=== PATIENT | female | born 1965 | race Caucasian/White ===

== ENCOUNTER 2017-05-02 10:24 | Emergency (ER) | payer MEDICAID ==
[~2017-05-02] VITALS: Ht 162.6 cm; Wt 80.0 kg
[2017-05-02 10:36] VITALS: Ht 162.6 cm; Wt 80.0 kg
[2017-05-02] MEDS ORDERED: KETOROLAC 60 MG INJ IM STA (12:00)
[2017-05-02] MEDS ORDERED: NAPR-688 PO (12:17)
[2017-05-02] MEDS ORDERED: HYDR-906 PO (12:17)
[2017-05-02] MEDS ORDERED: METH500T PO (12:17)
--- NOTE | 2017-05-02 12:23 | ERD ---
ER Documentation Chief Complaint Date/Time DATE: 05/02/17 TIME: 12:19 Chief Complaint SINCE THURSDAY HAS BACK PAIN TAKING MEDS AND NOT EFFECTIVE HAS OCONNELL NOW HPI This 51-year-old female presents the emergency room for neck and back pain she awoke with on . No trauma. She has been taking Tylenol which only helps a little bit but the pain continues. She is beginning to have a headache. He has no neurological symptoms and the main pain is in her upper back bilaterally. No fevers or chills. No nausea. ROS All systems reviewed and are negative except as per history of present illness. Medications Home Meds Active Scripts Methocarbamol* (Robaxin*) 500 Mg Tab, 500 MG PO Q8, #20 TAB Prov:KIM FLYNN DO 05/02/17 Naproxen* (Naproxen*) 500 Mg Tablet, 500 MG PO BID Y for PAIN, #20 TAB Prov:KIM FLYNN DO 05/02/17 Hydrocodone/Acetaminophen (Roulette 5-325 Tablet) 1 Each Tablet, 1 EACH PO Q6, #14 TAB Prov:KIM FLYNN DO 05/02/17 Allergies Allergies: Coded Allergies: No Known Allergy (Unverified , 05/02/17) PMhx/Soc Medical and Surgical Hx: pt denies Medical Hx, pt denies Surgical Hx History of Surgery: No Anesthesia Reaction: No Hx Neurological Disorder: No Hx Respiratory Disorders: No Hx Cardiac Disorders: No Hx Psychiatric Problems: No Hx Miscellaneous Medical Probl: No Hx Alcohol Use: No Hx Substance Use: No Hx Tobacco Use: Yes Smoking Status: Current every day smoker Physical Exam Vitals Vital Signs Date Time Temp Pulse Resp B/P Pulse Ox O2 Delivery O2 Flow Rate FiO2 05/02/17 10:36 98.6 89 18 131/83 97 Physical Exam Const: [] No distress Head: Atraumatic Eyes: Normal Conjunctiva ENT: Normal External Ears, Nose and Mouth. Neck: Full range of motion..~ No meningismus. Mild left paraspinal muscle spasm Back: Bilateral paraspinal muscle spasm, worse on the left than the right. No midline tenderness. No deformities. Neur: Awake and alert and oriented 3, no focal deficits, cranial nerves II through XII intact Psych: Normal Mood and Affect Results 24 hrs Current Medications Medications (Trade) Dose Ordered Sig/Halley Route PRN Reason Start Time Stop Time Status Last Admin Dose Admin Ketorolac Tromethamine (Toradol) 60 mg ONCE STAT IM 05/02/17 12:00 05/02/17 12:01 DC 05/02/17 12:10 Procedures/MDM Back muscle spasm responding only minimally to Tylenol. She was given a shot of Toradol in the emergency room to discharge with naproxen, Robaxin, Roulette to break the cycle of the spasm. I have extremely low suspicion for meningitis. Departure Diagnosis: Primary Impression: Muscle spasm of back Condition: Stable Patient Instructions: Back Spasm, No Trauma Referrals: [facility] YOU HAVE RECEIVED A MEDICAL SCREENING EXAM AND THE RESULTS INDICATE THAT YOU DO NOT HAVE A CONDITION THAT REQUIRES URGENT TREATMENT IN THE EMERGENCY DEPARTMENT. FURTHER EVALUATION AND TREATMENT OF YOUR CONDITION CAN WAIT UNTIL YOU ARE SEEN IN YOUR DOCTORS OFFICE WITHIN THE NEXT 1-2 DAYS. IT IS YOUR RESPONSIBILITY TO MAKE AN APPOINTMENT FOR FOLOW-UP CARE. IF YOU HAVE A PRIMARY DOCTOR --you should call your primary doctor and schedule an appointment IF YOU DO NOT HAVE A PRIMARY DOCTOR YOU CAN CALL OUR PHYSICIAN REFERRAL HOTLINE AT IF YOU CAN NOT AFFORD TO SEE A PHYSICIAN YOU CAN CHOSE FROM THE FOLLOWING [facility] [address] [facility]. [facility] [address] [facility] [facility] [address] [facility] [facility] [address] [facility] [facility] [phone] [facility]. [facility]. [address] Additional Instructions: Llame al doctor MAANA y danitza macario JAMIL PARA DENTRO DE 2-3 GILBERT.Dgale a la secretaria que nosotros le instruimos hacer esta jamil.Avise o llame si encinas condicin se empeora antes de la jamil. Regresa aqui si peor o no mejor. KIM FLYNN DO May 02, 2017 12:23
== END 2017-05-02 12:38 | disposition home or self-care (01) ==
LOC: FTE 10:24
DX: M62.830 Muscle spasm of back (principal); F17.210 Nicotine dependence, cigarettes, uncomplicated
CPT/HCPCS: 96372; J1885; Z7502

== ENCOUNTER 2017-11-16 21:19 | Emergency (ER) | payer MEDICAID ==
[~2017-11-16] VITALS: Ht 167.6 cm; Wt 79.3 kg
[~2017-11-16 21:19] MED LIST: HYDR-906 PO; METH500T PO; NAPR-688 PO
[2017-11-16 21:21] VITALS: Ht 167.6 cm; Wt 79.3 kg
[2017-11-16] MEDS ORDERED: ACET/BUTAL/CAFF TAB PO ONE (23:00)
--- NOTE | 2017-11-16 23:21 | ERD ---
ER Documentation Chief Complaint Chief Complaint headache, dizziness, numbness of fingers and lips x 5 days HPI 52-year-old female presents here in emergency department for multiple complaints. Patient has been having dry cough, does not cough up any phlegm or blood. Patient also has been having runny nose nasal congestion, body aches. Patient also has been having headaches, throbbing pain, succession scale, is accompanied with numbness and tingling in bilateral fingers and lips at times. Patient denies any loss of consciousness. Patient denies any changes in balance or memory. Patient has dizziness at times, but denies dizziness at this time. Patient states that she has upper back pain with coughing. Patient describes the pain as sharp pain, 6/10 scale, not better or worse with anything. ROS All systems reviewed and are negative except as per history of present illness. Medications Home Meds Active Scripts Wnqdumhkwyhgz-Deghhvecgi-Ykputysk-Codeine* (Fioricet w/Codeine*) [id number] -30MG Cap, 1 CAP PO Q4H Y for PAIN LEVEL 1-5, #20 CAP Prov:TIFFANY MENDOSA NP 11/16/17 Cetirizine Hcl* (Zyrtec*) 10 Mg Capsule, 10 MG PO DAILY, #30 TAB.CHEW Prov:TIFFANY MENDOSA NP 11/16/17 Fnhcpefqayf-M-Wkhxrciquc Hb* (Guaifenesin* DM Syrup) 120 Ml Syrup, 10 ML PO Q4H Y for COUGH, #120 ML Prov:TIFFANY MENDOSA NP 11/16/17 Methocarbamol* (Robaxin*) 500 Mg Tab, 500 MG PO Q8, #20 TAB Prov:KIM FLYNN DO 05/02/17 Naproxen* (Naproxen*) 500 Mg Tablet, 500 MG PO BID Y for PAIN, #20 TAB Prov:KIM FLYNN DO 05/02/17 Hydrocodone/Acetaminophen ([place] 5-325 Tablet) 1 Each Tablet, 1 EACH PO Q6, #14 TAB Prov:KIM FLYNN DO 05/02/17 Allergies Allergies: Coded Allergies: No Known Allergy (Unverified , 05/02/17) PMhx/Soc Medical and Surgical Hx: pt denies Medical Hx, pt denies Surgical Hx History of Surgery: No Anesthesia Reaction: No Hx Neurological Disorder: No Hx Respiratory Disorders: No Hx Cardiac Disorders: No Hx Psychiatric Problems: No Hx Miscellaneous Medical Probl: No Hx Alcohol Use: No Hx Substance Use: No Hx Tobacco Use: Yes Smoking Status: Current every day smoker FmHx Family History: No coronary disease, No diabetes, No other Physical Exam Vitals Vital Signs Date Time Temp Pulse Resp B/P Pulse Ox O2 Delivery O2 Flow Rate FiO2 11/16/17 21:21 99.3 82 20 115/67 98 Physical Exam GENERAL: The patient is well developed and appropriate for usual state of health, in no apparent distress. CHEST: Clear to auscultation bilaterally. There are no rales, wheezes or rhonchi. HEART: Regular rate and rhythm. No murmurs, clicks, rubs or gallops. No S3 or S4. ABDOMEN: Soft, nontender and nondistended. Good bowel sounds. No rebound or guarding. No gross peritonitis. No gross organomegaly or masses. No Horton sign or McBurney point tenderness. BACK: No midline or flank tenderness. EXTREMITIES: Equal pulses bilaterally. There is no peripheral clubbing, cyanosis or edema. No focal swelling or erythema. Full range of motion. Grossly neurovascularly intact. NEURO: Alert and oriented. Cranial nerves 2-12 intact. Motor strength in all 4 extremities with 5/5 strength. Sensation grossly intact. Normal speech and gait. SKIN: There is no apparent rash or petechia. The skin is warm and dry. HEMATOLOGIC AND LYMPHATIC: There is no evidence of excessive bruising or lymphedema. No gross cervical, axillary, or inguinal lymphadenopathy. Results 24 hrs Current Medications Medications (Trade) Dose Ordered Sig/Halley Route PRN Reason Start Time Stop Time Status Last Admin Dose Admin Acetaminophen/ Butalbital/ Caffeine (Fioricet) 1 tab ONCE ONCE PO 11/16/17 23:00 11/16/17 23:01 DC 11/16/17 23:38 Patient was given medication for pain here in emergency department, after treatment, patient verbalized feeling much better. Patient's pain is improved. EKG was done, read by me and is normal sinus rhythm at a rate of 68 normal axis , there is no ST changes or changes in the EKG that indicates any cardiac emergencies at this time. Patient's EKG was also reviewed by Dr Alvarez. . Impression: no acute findings on EKG PROCEDURE: CT Brain without contrast. CLINICAL INDICATION: Generalized headache. TECHNIQUE: A multiplanar CT of the brain was performed on a CT scanner utilizing axial imaging from the skull base through the vertex without . The CTDIvol is 44.33 mGy and the DLP is 720.23 mGycm. One or more of the following dose reduction techniques were utilized: Automated exposure control, adjustment of the mA and/or kV according to patient size, use of iterative reconstruction technique. DICOM images are available. COMPARISON: None FINDINGS: No evidence of intracranial hemorrhage or abnormal extra-axial fluid collection. 2 mm calcification within the right periventricular white matter posteriorly and left medial tentorium cerebelli most compatible with sequelae of chronic neurocysticercosis. The brain parenchyma is normal in attenuation and morphology with preservation of loyola white differentiation Age appropriate size of the ventricles and subarachnoid spaces. The posterior fossa contents, brainstem, craniocervical junction, orbits, pituitary axis, paranasal sinuses, mastoid air cells, and calvarium are unremarkable. IMPRESSION: 1. No intracranial hemorrhage or acute intracranial abnormality . 2. Punctate intracerebral calcifications most compatible with sequelae of chronic neurocysticercosis. 3. MRI may be considered for further evaluation as clinically warranted. RPTAT:AAJJ Physician Juan Date Time Electronically viewed and signed by Physician Juan on 11/16/2017 23:25 STACEY/ CC: TIFFANY MENDOSA NP PROCEDURE: Chest. CLINICAL INDICATION: Cough. TECHNIQUE: Single frontal view of the chest was obtained. COMPARISON: None. FINDINGS: The cardiac silhouette is within normal limits. The aortic arch is unremarkable. There is no focal consolidation, vascular congestion or pleural effusion. There is no pneumothorax. IMPRESSION: No evidence for active cardiopulmonary disease. .Moses Vee MD, Date Time Electronically viewed and signed by .Moses Vee MD, MD on 11/16/2017 23:29 .T/ CC: TIFFANY MENDOSA RN ONCOLOGY CLINICAL Procedures/MDM Medical Decision Making: Patient symptoms are most likely consistent with upper respiratory tract infection which viral in origin. There is low suspicion for Pneumonia at this time since patients lungs sounds are clear, patient O2 saturation is normal and patient doesnt show any respiratory distress. Patients chest xray doesnt show infiltrates or any other cardiopulmonary emergencies at this time. There is low suspicion for other cardiopulmonary emergencies at this time such as CHF, Pulmonary Embolism, Pneumothorax, Aortic Aneurysm or any other cardiopulmonary emergencies at this time. There is low suspicion for sepsis. Patient appears well and is hemodynamically stable. Fever is controlled with medicines. Patient symptoms are consistent with migraine headache, possible tension headache. There is low suspicion for neurological emergencies at this time since patients neurologic exam is normal. Patient did not have any altered level consciousness, vomiting, changes in balance or memory and did not have any head injury. Patients CT scan of the head does not show any neurological emergencies at this time. I discussed this case with my attending physician, Dr. Campa, agrees with plan at this time. Disposition: Home. Condition: Stable Prescriptions: Fioricet with codeine, Zyrtec guaifenesin DM Instructions: Patient is advised to take medications as prescribed. Patient is advised to rest. Patient advised to increase fluid intake, do humidifier at home and if possible, do salt water gargles. Patient is advised that if symptoms are worse, shortness of breath, uncontrolled fever, stridor, vomiting, worst signs and symptoms to return to emergency department immediately. Otherwise, patient is advised to follow up with primary doctor in 5-7 days. Disclaimer: Inadvertent spelling and grammatical errors are likely due to EHR/ dictation software use and do not reflect on the overall quality of patient care. Also, please note that the electronic time recorded on this note does not necessarily reflect the actual time of the patient encounter. Departure Diagnosis: Primary Impression: URI (upper respiratory infection) URI type: unspecified viral URI Qualified Code: J06.9 - Viral upper respiratory tract infection Additional Impression: Headache Headache type: unspecified Headache chronicity pattern: acute headache Intractability: not intractable Qualified Code: R51 - Acute nonintractable headache, unspecified headache type Condition: Stable Patient Instructions: Self-Care for Headaches, Uri, Viral, No Abx (Adult) Additional Instructions: Patient is advised to take medications as prescribed. Patient is advised to rest. Patient advised to increase fluid intake, do humidifier at home and if possible, do salt water gargles. Patient is advised that if symptoms are worse, shortness of breath, uncontrolled fever, stridor, vomiting, worst signs and symptoms to return to emergency department immediately. Otherwise, patient is advised to follow up with primary doctor in 5-7 days. TIFFANY MENDOSA NP Nov 16, 2017 23:21
--- NOTE | 2017-11-16 23:26 | RADRPT ---
PROCEDURE: CT Brain without contrast. CLINICAL INDICATION: Generalized headache. TECHNIQUE: A multiplanar CT of the brain was performed on a CT scanner utilizing axial imaging fro m the skull base through the vertex without . The CTDIvol is 44.33 mGy and the DLP is 720.23 mGycm . One or more of the following dose reduction techniques were utilized: Automated exposure control , adjustment of the mA and/or kV according to patient size, use of iterative reconstruction techniqu e. DICOM images are available. COMPARISON: None FINDINGS: No evidence of intracranial hemorrhage or abnormal extra-axial fluid collection. 2 mm calcification within the right periventricular white matter posteriorly and left medial tentorium cerebelli most c ompatible with sequelae of chronic neurocysticercosis. The brain parenchyma is normal in attenuation and morphology with preservation of loyola white differe ntiation Age appropriate size of the ventricles and subarachnoid spaces. The posterior fossa contents, brainstem, craniocervical junction, orbits, pituitary axis, paranasal sinuses, mastoid air cells, and calvarium are unremarkable. IMPRESSION: 1. No intracranial hemorrhage or acute intracranial abnormality . 2. Punctate intracerebral calcifications most compatible with sequelae of chronic neurocysticercos is. 3. MRI may be considered for further evaluation as clinically warranted. RPTAT:AAJJ Physician Juan Date Time Electronically viewed and signed by Physician Juan on 11/16/2017 23:25 STACEY/
--- NOTE | 2017-11-16 23:30 | RADRPT ---
PROCEDURE: Chest. CLINICAL INDICATION: Cough. TECHNIQUE: Single frontal view of the chest was obtained. COMPARISON: None. FINDINGS: The cardiac silhouette is within normal limits. The aortic arch is unremarkable. There is no focal consolidation, vascular congestion or pleural effusion. There is no pneumothorax. IMPRESSION: No evidence for active cardiopulmonary disease. .Moses Vee MD, MD Date Time Electronically viewed and signed by .Moses Vee MD, MD on 11/16/2017 23:29 .T/
[2017-11-16] MEDS ORDERED: CETI10CA PO (23:51)
[2017-11-16] MEDS ORDERED: ABCC1C PO (23:51)
[2017-11-16] MEDS ORDERED: GUAI120S26 PO (23:51)
== END 2017-11-17 00:56 | disposition home or self-care (01) ==
LOC: FTE 21:19
DX: J06.9 Acute upper respiratory infection, unspecified (principal); F17.210 Nicotine dependence, cigarettes, uncomplicated; R42 Dizziness and giddiness
CPT/HCPCS: 70450; 71010; 93005; Z7502; Z7610

== ENCOUNTER 2018-01-27 16:45 | Emergency (ER) | END 2018-01-27 20:04 | disposition home or self-care (01) ==

== ENCOUNTER 2018-06-28 13:25 | Emergency (ER) | END 2018-06-28 16:45 | disposition home or self-care (01) ==

== ENCOUNTER 2019-06-15 22:29 | Emergency (ER) | payer MEDICAID ==
[~2019-06-15] VITALS: Ht 167.6 cm; Wt 78.8 kg
[~2019-06-15 22:29] MED LIST changes: +ABCC1C PO; +BACL10TA PO; +CETI10CA PO; +FIORICET PO; +GUAI120S25 PO; +HYDR-4011 PO; -HYDR-906 PO; +NAPR-985 PO
[2019-06-15 22:43] VITALS: Ht 167.6 cm; Wt 78.8 kg
[2019-06-16] MEDS ORDERED: AZIT250T PO (00:39)
[2019-06-16] MEDS ORDERED: IBUP-1542 PO (00:39)
[2019-06-16] MEDS ORDERED: PHEN177S43 MT (00:39)
[2019-06-16] MEDS ORDERED: ALBU18HF INHALATION (00:39)
[2019-06-16] MEDS ORDERED: BENZ200C68 PO (00:39)
[2019-06-16 01:12] VITALS: BP 108/65; PULSE 85; RESP 18
--- NOTE | 2019-06-16 03:51 | ERD ---
ER Documentation Chief Complaint Chief Complaint cough/sore throat x 8 days. also c/o fever HPI This patient is a 53-year-old female otherwise healthy presenting to the emergency department complaining of intermittent cough and sore throat for the past 8 days. Symptoms are worse at night. Patient has had tactile fevers. She took Tylenol at home with some relief. She reports cough that is productive of phlegm. She denies any sick contacts. Symptoms are moderate in severity. She denies any other symptoms currently. ROS All systems reviewed and are negative except as per history of present illness. Medications Home Meds Active Scripts Albuterol Sulfate* (Ventolin HFA*) 18 Gm Hfa.aer.ad, 2 PUFF INHALATION Q4H, #1 INHALER Prov:TEX FAIR PA-C 06/16/19 Ibuprofen* (Motrin*) 600 Mg Tab, 600 MG PO Q6, #30 TAB Prov:TEX FAIR PA-C 06/16/19 Benzonatate* (Benzonatate*) 200 Mg Capsule, 200 MG PO TID PRN for COUGH, #15 CAP Prov:TEX FAIR PA-C 06/16/19 Phenol* (Chloraseptic* [place]) 177 Ml [place].pump, 2 SPRAY MT Q2H PRN for SORE THROAT, #1 BOTTLE Prov:TEX FAIR PA-C 06/16/19 Azithromycin* (Zithromax*) 250 Mg Tablet, 250 MG PO .ZPACK DIRECTED, #6 TAB TAKE 500 MG (2 TABS) THE FIRST DAY THEN 250 MG (1 TAB) DAYS 2-5 Prov:TEX FAIR PA-C 06/16/19 Acetamin/Butalbital/Caffeine* (Fioricet*) [id number] Tab, 1 TAB PO Q6H PRN for PAIN, #15 TAB Prov:SIMI SIMMONS MD 06/28/18 Baclofen* (Baclofen*) 10 Mg Tablet, 10 MG PO Q8, #10 TAB Prov:LIBORIO PERES PA-C 01/27/18 Naproxen* (Naprosyn*) 500 Mg Tablet, 500 MG PO BID PRN for PAIN AND/OR INFLAMMATION, #30 TAB Prov:LIBORIO PERES PA-C 01/27/18 Fznuvvvinghbi-Rgobracscq-Eigagrwp-Codeine* (Fioricet w/Codeine*) [id number] Cap, 1 CAP PO Q4H PRN for PAIN LEVEL 1-5, #20 CAP Prov:TIFFANY MENDOSA NP 11/16/17 Cetirizine Hcl* (Zyrtec*) 10 Mg Capsule, 10 MG PO DAILY, #30 TAB.CHEW Prov:TIFFANY MENDOSA NP 11/16/17 Yosgueyhiva-Y-Wckomtdqcj Hb* (Guaifenesin* DM Syrup) 120 Ml Syrup, 10 ML PO Q4H PRN for COUGH, #120 ML Prov:TIFFANY MENDOSA NP 11/16/17 Methocarbamol* (Robaxin*) 500 Mg Tab, 500 MG PO Q8, #20 TAB Prov:KIM FLYNN DO 05/02/17 Naproxen* (Naproxen*) 500 Mg Tablet, 500 MG PO BID PRN for PAIN, #20 TAB Prov:KIM FLYNN DO 05/02/17 Hydrocodone/Acetaminophen ([place] 5-325 Tablet) 1 Each Tablet, 1 EACH PO Q6, #14 TAB Prov:KIM FLYNN DO 05/02/17 Allergies Allergies: Coded Allergies: No Known Allergy (Unverified , 05/02/17) PMhx/Soc History of Surgery: No Anesthesia Reaction: No Hx Neurological Disorder: No Hx Respiratory Disorders: No Hx Cardiac Disorders: No Hx Psychiatric Problems: No Hx Miscellaneous Medical Probl: No Hx Alcohol Use: No Hx Substance Use: No Hx Tobacco Use: Yes Smoking Status: Current every day smoker FmHx Family History: No diabetes Physical Exam Vitals Vital Signs Date Temp Pulse Resp B/P (MAP) Pulse Ox O2 O2 Flow FiO2 Time Delivery Rate 06/16/19 98.3 85 18 108/65 95 01:12 (79) 06/15/19 98.9 84 18 117/59 98 22:43 (78) Physical Exam Const: No acute distress Head: Atraumatic Eyes: Normal Conjunctiva ENT: Normal External Ears, Nose and Mouth. Nares are congested. Posterior pharynx is erythematous. No tonsillar enlargement or exudate noted. Airway is patent. Neck: Full range of motion. No meningismus. Resp: Mild inspiratory rhonchi. No crackles. No respiratory distress. Cardio: Regular rate and rhythm, no murmurs Skin: No petechiae or rashes Back: No midline or flank tenderness Ext: No cyanosis, or edema Neur: Awake and alert Psych: Normal Mood and Affect Procedures/MDM 53-year-old female presented to the emergency department complaining of intermittent cough, sore throat, fevers. History and physical examination most consistent with acute bronchitis, possible bacterial etiology. No evidence to suggest meningitis, sepsis, or other emergencies. Patient is stable and appropriate for discharge and further outpatient management with prescriptions. She will need 24 to 48-hour follow-up with her primary care physician and she should return here for any new or worsening or concerning symptoms. Shared my medical decision making with the patient and she understands and agrees with plan. Departure Diagnosis: Primary Impression: Acute bronchitis Condition: Fair Patient Instructions: Bronchitis, Antiobiotic Treatment (Adult) Additional Instructions: Llame al doctor MAANA y danitza macario JAMIL PARA DENTRO DE 1-2 GILBERT.Dgale a la secretaria que nosotros le instruimos hacer esta jamil.Avise o llame si encinas condicin se empeora antes de la jamil. Regresa aqui si peor o no mejor. TEX FAIR PA-C Jun 16, 2019 03:51
== END 2019-06-16 01:13 | disposition home or self-care (01) ==
LOC: FTE 22:29
DX: J20.9 Acute bronchitis, unspecified (principal); F17.210 Nicotine dependence, cigarettes, uncomplicated
CPT/HCPCS: 99283